=== PATIENT | female | born 1970 | race Two or more races ===

== ENCOUNTER 2017-11-01 14:18 | Observation (INO) | payer BC ==
[2017-11-01] MEDS ORDERED: ONDANSETRON 4 MG/2 ML VIAL IVP STA (16:42)
[2017-11-01] MEDS ORDERED: KETOROLAC 30 MG/ML 1 ML VIAL IVP STA (16:43)
[2017-11-01 17:01] LABS: Basophils % (A) 1 %; Eosinophils # (A) 0.1 k/uL (0-0.7); Eosinophils % (A) 1 %; HCT 40.8 % (34.0-46.0); HGB 13.4 gm/dL (11.4-16.0); Lymphocytes # (A) 1.6 k/uL (1.0-4.8); Lymphocytes % (A) 38 %; MCH 29.5 pg (25.0-35.0); MCHC 32.9 g/dL (31.0-37.0); MCV 89.7 fL (80.0-100.0); Monocytes # (A) 0.3 k/uL (0-1.0); Monocytes % (A) 6 %; Neutrophils # (A) 2.2 k/uL (1.3-7.7); Neutrophils % (A) 52 %; Platelet Count 224 k/uL (150-450); RBC 4.54 m/uL (3.80-5.40); RDW 13.3 % (11.5-15.5); WBC 4.2 k/uL (3.8-10.6)
[2017-11-01 17:09] LABS: Partial Thromboplastin Time 25.1 sec (22.0-30.0); Prothrombin Time 9.8 sec (9.0-12.0)
[2017-11-01 17:10] LABS: ALT 39 U/L (9-52); AST 25 U/L (14-36); Albumin 4.1 g/dL (3.5-5.0); Alkaline Phosphatase 71 U/L (38-126); Amylase <30 U/L (30-110); Anion Gap 10 mmol/L; Blood Urea Nitrogen 6 mg/dL (7-17); Calcium 9.4 mg/dL (8.4-10.2); Carbon Dioxide 26 mmol/L (22-30); Chloride 103 mmol/L (98-107); Glucose 99 mg/dL (74-99); Lipase 64 U/L (23-300); Magnesium 1.8 mg/dL (1.6-2.3); Potassium 4.1 mmol/L (3.5-5.1); Sodium 139 mmol/L (137-145); Total Bilirubin 0.5 mg/dL (0.2-1.3); Total Protein 6.9 g/dL (6.3-8.2)
[2017-11-01 17:22] LABS: Creatine Kinase 23 U/L (30-135)
--- NOTE | 2017-11-01 17:23 | XR ---
EXAMINATION TYPE: XR chest 2V DATE OF EXAM: 11/01/2017 COMPARISON: NONE HISTORY: Chest pain TECHNIQUE: Frontal and lateral views of the chest are obtained. FINDINGS: There is no focal air space opacity, pleural effusion, or pneumothorax seen. The cardiac silhouette size is within normal limits. The osseous structures are intact. Mild degenerative yepez es of the acromioclavicular joints are noted. IMPRESSION: No acute cardiopulmonary process.
[2017-11-01 17:35] LABS: Creatine Kinase MB <0.2 ng/mL (0.0-2.4); Troponin I <0.012 ng/mL (0.000-0.034)
--- NOTE | 2017-11-01 18:17 | ED ---
Recheck HPI - General Chief Complaint: Recheck/Abnormal Lab/Rx Stated Complaint: Palpatations Time Seen by Provider: 11/01/17 16:23 Source: patient, RN notes reviewed, old records reviewed Mode of arrival: ambulatory Limitations: language barrier - History of Present Illness Initial Comments: 47-year-old female presents emergency department today with intermittent nausea vomiting, diarrhea for the past few days. She reports she's also had some left- sided shoulder pain and complains of some chest pain. She states that has been going on for quite some time, feels like there is a Pin stabbing chest. And complains of heart palpitations over the past weekend. Patient states that she has history of diabetes. She reports that she talked her friends and was concerned that this could be some left-sided chest pain related to her heart. She denies any other associated symptoms, cleaning headache, diaphoresis, shortness of breath. She reports that she lives here by herself, does work at a factory. - Related Data Home Medications Medication Instructions Recorded Confirmed metFORMIN HCL [Glucophage] 500 mg PO TID PRN 11/01/17 11/01/17 Previous Rx's Medication Instructions Recorded Ibuprofen [Motrin] 600 mg PO Q8HR PRN #20 tab 11/01/17 Loperamide [Imodium] 2 mg PO TID #6 capsule 11/01/17 Ondansetron Odt [Zofran Odt] 4 mg PO Q8HR PRN #12 tab 11/01/17 Allergies Allergy/AdvReac Type Severity Reaction Status Date / Time No Known Allergies Allergy Verified 11/01/17 16:35 Review of Systems ROS Statement: Those systems with pertinent positive or pertinent negative responses have been documented in the HPI. ROS Other: All systems not noted in ROS Statement are negative. Past Medical History Past Medical History: Diabetes Mellitus History of Any Multi-Drug Resistant Organisms: None Reported Past Psychological History: No Psychological Hx Reported Smoking Status: Never smoker Past Alcohol Use History: None Reported Past Drug Use History: None Reported General Exam - General Exam Comments Initial Comments: This is a 47-year-old female. No acute distress. There is a language barrier. She does not speak fluent Swedish. Limitations: language barrier General appearance: alert, in no apparent distress Head exam: Present: atraumatic, normocephalic, normal inspection Eye exam: Present: normal appearance, PERRL, EOMI. Absent: scleral icterus, conjunctival injection, periorbital swelling ENT exam: Present: normal exam, mucous membranes moist Neck exam: Present: normal inspection. Absent: tenderness, meningismus, lymphadenopathy Respiratory exam: Present: normal lung sounds bilaterally. Absent: respiratory distress, wheezes, rales, rhonchi, stridor Cardiovascular Exam: Present: regular rate, normal rhythm, normal heart sounds. Absent: systolic murmur, diastolic murmur, rubs, gallop, clicks GI/Abdominal exam: Present: soft, normal bowel sounds. Absent: distended, tenderness, guarding, rebound, rigid Back exam: Present: normal inspection Neurological exam: Present: alert, oriented X3, CN II-XII intact Psychiatric exam: Present: normal affect, normal mood Skin exam: Present: warm, dry, intact, normal color. Absent: rash Course Vital Signs 11/01/17 11/01/17 11/01/17 14:37 17:00 18:52 Temperature 98.8 F Pulse Rate 86 77 75 Respiratory 20 18 18 Rate Blood Pressure 125/58 109/64 132/75 O2 Sat by Pulse 100 97 98 Oximetry Medical Decision Making - Medical Decision Making This patient is a 39-year-old female comes in today with left shoulder pain, and severe diarrhea and nausea and vomiting this weekend. She reports that she had episodes of heart palpitations. She reports that they suicidal she is in the emergency department. She states that whenever they occur she has a sharp pain in her chest. Patient is a diabetic. She reports that she has sharp pins and needles in her chest, and complains of chest pressure. Patient does have a language barrier. Initially went to discharge the patient has cardiac workup was negative, she still continues to complain of chest pain. Multiple times have the patient follow-up with primary care provider, however I'm concerned that she is not completely understand this. Patient concerned with this and continue plan chest pain, for patient to be minute for observation for repeat troponins, and cardiac consult. We'll give the patient aspirin, and repeat cardiac enzymes. We'll put the patient on observation for cardiac evaluation. Patient is agreeable to this. - Lab Data Result diagrams: 11/01/17 16:40 11/01/17 16:40 Lab Results 11/01/17 11/01/17 11/01/17 Range/Units 16:40 16:40 16:40 WBC 4.2 (3.8-10.6) k/uL RBC 4.54 (3.80-5.40) m/uL Hgb 13.4 (11.4-16.0) gm/dL Hct 40.8 (34.0-46.0) % MCV 89.7 (80.0-100.0) fL MCH 29.5 (25.0-35.0) pg MCHC 32.9 (31.0-37.0) g/dL RDW 13.3 (11.5-15.5) % Plt Count 224 (150-450) k/uL Neutrophils % 52 % Lymphocytes % 38 % Monocytes % 6 % Eosinophils % 1 % Basophils % 1 % Neutrophils # 2.2 (1.3-7.7) k/uL Lymphocytes # 1.6 (1.0-4.8) k/uL Monocytes # 0.3 (0-1.0) k/uL Eosinophils # 0.1 (0-0.7) k/uL Basophils # 0.0 (0-0.2) k/uL PT (9.0-12.0) sec INR (<1.2) APTT (22.0-30.0) sec Sodium 139 (137-145) mmol/L Potassium 4.1 (3.5-5.1) mmol/L Chloride 103 (98-107) mmol/L Carbon Dioxide 26 (22-30) mmol/L Anion Gap 10 mmol/L BUN 6 L (7-17) mg/dL Creatinine 0.47 L (0.52-1.04) mg/dL Est GFR (MDRD) Af Amer >60 (>60 ml/min/1.73 sqM) Est GFR (MDRD) Non-Af >60 (>60 ml/min/1.73 sqM) Glucose 99 (74-99) mg/dL Calcium 9.4 (8.4-10.2) mg/dL Magnesium 1.8 (1.6-2.3) mg/dL Total Bilirubin 0.5 (0.2-1.3) mg/dL AST 25 (14-36) U/L ALT 39 (9-52) U/L Alkaline Phosphatase 71 (38-126) U/L Total Creatine Kinase 23 L (30-135) U/L CK-MB (CK-2) <0.2 (0.0-2.4) ng/mL CK-MB (CK-2) Rel Index Troponin I <0.012 (0.000-0.034) ng/mL NT-Pro-B Natriuret Pep pg/mL Total Protein 6.9 (6.3-8.2) g/dL Albumin 4.1 (3.5-5.0) g/dL Amylase <30 L (30-110) U/L Lipase 64 (23-300) U/L 11/01/17 11/01/17 Range/Units 16:40 16:40 WBC (3.8-10.6) k/uL RBC (3.80-5.40) m/uL Hgb (11.4-16.0) gm/dL Hct (34.0-46.0) % MCV (80.0-100.0) fL MCH (25.0-35.0) pg MCHC (31.0-37.0) g/dL RDW (11.5-15.5) % Plt Count (150-450) k/uL Neutrophils % % Lymphocytes % % Monocytes % % Eosinophils % % Basophils % % Neutrophils # (1.3-7.7) k/uL Lymphocytes # (1.0-4.8) k/uL Monocytes # (0-1.0) k/uL Eosinophils # (0-0.7) k/uL Basophils # (0-0.2) k/uL PT 9.8 (9.0-12.0) sec INR 1.0 (<1.2) APTT 25.1 (22.0-30.0) sec Sodium (137-145) mmol/L Potassium (3.5-5.1) mmol/L Chloride (98-107) mmol/L Carbon Dioxide (22-30) mmol/L Anion Gap mmol/L BUN (7-17) mg/dL Creatinine (0.52-1.04) mg/dL Est GFR (MDRD) Af Amer (>60 ml/min/1.73 sqM) Est GFR (MDRD) Non-Af (>60 ml/min/1.73 sqM) Glucose (74-99) mg/dL Calcium (8.4-10.2) mg/dL Magnesium (1.6-2.3) mg/dL Total Bilirubin (0.2-1.3) mg/dL AST (14-36) U/L ALT (9-52) U/L Alkaline Phosphatase (38-126) U/L Total Creatine Kinase (30-135) U/L CK-MB (CK-2) (0.0-2.4) ng/mL CK-MB (CK-2) Rel Index Troponin I (0.000-0.034) ng/mL NT-Pro-B Natriuret Pep 32 pg/mL Total Protein (6.3-8.2) g/dL Albumin (3.5-5.0) g/dL Amylase (30-110) U/L Lipase (23-300) U/L 11/01/17 18:25 EKG shows normal sinus rhythm, ventricular rate of 82 bpm. HI interval 150 ms. QRS duration 82 Aliyah's ice. QTQTC 39 03/28/1963 milliseconds. - Radiology Data Radiology results: report reviewed His x-rays negative for any acute process. Disposition Clinical Impression: Chest pain, Diarrhea Disposition: ADMITTED IP TO THIS HOSP Condition: Good Additional Instructions: Patient denies to rest, increase her fluid intake. Return to the emergency department if any alarming signs or symptoms occur. Prescriptions: Ibuprofen [Motrin] 600 mg PO Q8HR PRN #20 tab PRN Reason: Pain Loperamide [Imodium] 2 mg PO TID #6 capsule Ondansetron Odt [Zofran Odt] 4 mg PO Q8HR PRN #12 tab PRN Reason: Nausea Referrals: None,Stated [Primary Care Provider] - 1-2 days Trinidad Ibarra MD [STAFF PHYSICIAN] - 1-2 days Time of Disposition: 18:29
[2017-11-01] MEDS ORDERED: NITROGLYCERIN SL TABS 0.4 MG TAB SUBLINGUAL PRN (19:21)
[2017-11-01] MEDS ORDERED: ASPIRIN 81 MG PO STA (19:21)
[2017-11-01 20:00] LABS: Mean Platelet Volume 8.8; Platelet Count 198 k/uL (150-450)
[2017-11-01] MEDS ORDERED: LOPERAMIDE 2 MG CAP PO PRN (21:30)
[2017-11-01 21:31] LABS: Glucose,Whole Blood 120 mg/dL (75-99)
[2017-11-01 22:46] LABS: Creatine Kinase 21 U/L (30-135)
[2017-11-01 23:00] LABS: Creatine Kinase MB <0.2 ng/mL (0.0-2.4); Troponin I <0.012 ng/mL (0.000-0.034)
[2017-11-01] MEDS: metFORMIN 500 MG TAB PO SCH (23:21)
[2017-11-01] MEDS: IBUPROFEN 600 MG TAB PO SCH (23:21)
[2017-11-02 05:45] LABS: Cholesterol 157 mg/dL (<200); HDL Cholesterol 45 mg/dL (40-60); LDL Cholesterol,Calculated 90 mg/dL (0-99); Triglycerides 112 mg/dL (<150)
[2017-11-02 05:49] LABS: Creatine Kinase <20 U/L (30-135)
[2017-11-02 06:03] LABS: Creatine Kinase MB <0.2 ng/mL (0.0-2.4); Troponin I <0.012 ng/mL (0.000-0.034)
--- NOTE | 2017-11-02 07:44 | HP ---
HISTORY AND PHYSICAL CHIEF COMPLAINT: A 47-year-old female with chest pain, nausea, vomiting, diarrhea for the past few days. She states somebody at work had this. She has some left-sided shoulder pain and some neck pain radiating to her shoulder, but she states it is a pin-stabbing chest pain. 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 She has had heart palpitations over the weekend. She has history of diabetes mellitus. No heart attacks or strokes. She has strong family history of heart disease, though. HOME MEDICATIONS: Include metformin 500 mg t.i.d. ALLERGIES: No known drug allergies. . 14 PINT REVIEW OF SYSTEMS: Negative except for as mentioned in HPI. PAST MEDICAL HISTORY: Diabetes mellitus. No smoking. No alcohol. No illicit drugs. CARDIOVASCULAR: S1, S2. LUNGS: Transmitted upper sounds. GI: Soft, nontender. HEMATOLOGIC: Negative Homans. PSYCH: Fair mood and affect. OPHTHALMOLOGICAL: Pupils equal, round, reactive to light and accommodation. NEUROLOGIC: Alert and oriented x3. SKIN: Warm, dry, intact. Temp 98.8, pulse 70s to 80s, respiration 18 to 20, blood pressure 120 to 130s/60s to 70s., O2 98% to 100% on room air. ASSESSMENT: 1. Rule out myocardial infarction. 2. Atypical chest pain. 3. Check thyroid. 4. Check A1c. 5. Check further medications. 6. Possible discharge home in the next 24 to 48 hours if cleared by Cardiology. Possible stress test will be done tomorrow if cardiac enzymes are ruled out due to strong family history. Chest x-ray is negative for any infiltrate and D-dimer is negative also. Please see further orders. MMODL / IJN: [id number] /
[2017-11-02] MEDS ORDERED: ASPIRIN 325 MG TAB PO SCH (09:00)
[2017-11-02 11:51] LABS: Glucose,Whole Blood 103 mg/dL (75-99)
[2017-11-02] MEDS: metFORMIN 500 MG TAB PO SCH (12:21)
[2017-11-02] MEDS: IBUPROFEN 600 MG TAB PO SCH (12:23)
--- NOTE | 2017-11-02 12:23 | P.CRDCN ---
History of Present Illness Consult date: 11/02/17 History of present illness: Mrs. Francis is a pleasant 47-year-old female with past medical history significant for diabetes mellitus. 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 She began to feel chest discomfort last week Tim while at work described as a heavy sensation in the center of her chest like a rock sitting on her chest. She became acutely nauseous and began vomiting. She continued with nausea/vomiting, body aches, racing heart and fever/chills for the remainder of the weekend. She also developed some pain in the left arm that is described as achy in nature. There is some radiation into the mid back region. 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 She states she has a significant family history of coronary artery disease with her father, brother, uncle and cousin all having premature cardiac disease. She was told by a physician in [place] some years back that she had elevated cholesterol. Lipid panel here is unremarkable. At the time of my exam she continues to complain of mild pain in the left arm and shoulder. This pain is not reproducible and is not worse with a deep inspiration. EKG on arrival reveals sinus mechanism with no acute ST or T-wave abnormalities. Chest xray negative for acute cardiopulmonary process. Laboratory data reviewed, cardiac enzymes negative x3, d-dimer negative, potassium 4.1, magnesium 1.8, creatinine 0.47, tsh 0.975, LDL 90, HDL 45. She takes no cardiac medications. Review of Systems At the time of my exam: CONSTITUTIONAL: Denies fever. Denies chills. EYES: Denies blurred vision. Denies vision changes. Denies eye pain. EARS, NOSE, MOUTH & THROAT: Denies headache. Denies sore throat. Denies ear pain. CARDIOVASCULAR: Denies chest pain. Denies shortness of breath. Denies orthopnea. Denies PND. Denies palpitations. RESPIRATORY: Denies cough. GASTROINTESTINAL: Denies abdominal pain. Denies diarrhea. Denies constipation. Denies nausea. Denies vomiting. MUSCULOSKELETAL: Complains of pain in the left arm, shoulder and neck. INTEGUMENTARY: Denies pruitis. Denies rash. NEUROLOGIC: Denies numbness. Denies tingling. Denies weakness. PSYCHIATRIC: Denies anxiety. Denies depression. ENDOCRINE: Denies fatigue. Denies weight change. Denies polydipsia. Denies polyurina. GENITOURINARY: Denies burning, hematuria or urgency with micturation. HEMATOLOGIC: Denies history of anemia. Denies bleeding. Past Medical History Past Medical History: Diabetes Mellitus History of Any Multi-Drug Resistant Organisms: None Reported Past Surgical History: Section Additional Past Surgical History / Comment(s): Lt knee surgery r/t fracture Past Anesthesia/Blood Transfusion Reactions: No Reported Reaction Past Psychological History: No Psychological Hx Reported Smoking Status: Never smoker Past Alcohol Use History: None Reported Past Drug Use History: None Reported Medications and Allergies Home Medications Medication Instructions Recorded Confirmed Type Ibuprofen [Motrin] 600 mg PO Q8HR PRN #20 tab 11/01/17 Rx Loperamide [Imodium] 2 mg PO TID #6 capsule 11/01/17 Rx Ondansetron Odt [Zofran Odt] 4 mg PO Q8HR PRN #12 tab 11/01/17 Rx metFORMIN HCL [Glucophage] 500 mg PO TID PRN 11/01/17 11/01/17 History Allergies Allergy/AdvReac Type Severity Reaction Status Date / Time No Known Allergies Allergy Verified 11/01/17 16:35 Physical Exam Vitals: Vital Signs Temp Pulse Pulse Resp BP BP Pulse Ox 11/02/17 07:55 97.7 F 70 16 106/51 97 11/02/17 04:00 70 18 11/02/17 00:00 97.9 F 70 18 130/67 100 11/01/17 21:59 97.8 F 76 18 139/78 100 11/01/17 20:09 97.9 F 75 18 113/67 98 11/01/17 19:43 74 16 119/68 98 11/01/17 18:52 75 18 132/75 98 11/01/17 17:00 77 18 109/64 97 11/01/17 14:37 98.8 F 86 20 125/58 100 Intake and Output 11/01/17 11/02/17 11/02/17 22:59 06:59 14:59 Other: Voiding Method Toilet Toilet # Voids 1 Weight 54.431 kg 54.431 kg Blood pressure 106/51 heart rate 70 afebrile GENERAL: This is a 47-year-old female in no apparent distress at the time of my examination. HEENT: Head is atraumatic, normocephalic. Pupils are equal, round. Sclerae anicteric. Conjunctivae are clear. Mucous membranes of the mouth are moist. Neck is supple. There is no jugular venous distention. No carotid bruit is heard. LUNGS: Clear to auscultation no wheezes, rales or rhonchi. No chest wall tenderness is noted on palpation or with deep breathing. HEART: Regular rate and rhythm without murmurs, rubs or gallops. S1 and S2 heard. ABDOMEN: Soft, nontender. Bowel sounds are heard. No organomegaly noted. EXTREMITIES: 2+ peripheral pulses with no evidence of peripheral edema and no calf tenderness noted. NEUROLOGIC: Patient is awake, alert and oriented x3. Results 11/01/17 19:42 11/01/17 16:40 Cardiac Enzymes 11/01/17 11/01/17 11/01/17 Range/Units 16:40 16:40 22:01 AST 25 (14-36) U/L CK-MB (CK-2) <0.2 <0.2 (0.0-2.4) ng/mL Troponin I <0.012 <0.012 (0.000-0.034) ng/mL 11/02/17 Range/Units 05:00 AST (14-36) U/L CK-MB (CK-2) <0.2 (0.0-2.4) ng/mL Troponin I <0.012 (0.000-0.034) ng/mL Coagulation 11/01/17 11/01/17 Range/Units 16:40 19:42 PT 9.8 (9.0-12.0) sec APTT 25.1 25.4 (22.0-30.0) sec Lipids 11/02/17 Range/Units 05:04 Triglycerides 112 (<150) mg/dL Cholesterol 157 (<200) mg/dL HDL Cholesterol 45 (40-60) mg/dL CBC 11/01/17 11/01/17 Range/Units 16:40 19:42 WBC 4.2 (3.8-10.6) k/uL RBC 4.54 (3.80-5.40) m/uL Hgb 13.4 (11.4-16.0) gm/dL Hct 40.8 (34.0-46.0) % Plt Count 224 198 (150-450) k/uL Comprehensive Metabolic Panel 11/01/17 Range/Units 16:40 Sodium 139 (137-145) mmol/L Potassium 4.1 (3.5-5.1) mmol/L Chloride 103 (98-107) mmol/L Carbon Dioxide 26 (22-30) mmol/L BUN 6 L (7-17) mg/dL Creatinine 0.47 L (0.52-1.04) mg/dL Glucose 99 (74-99) mg/dL Calcium 9.4 (8.4-10.2) mg/dL AST 25 (14-36) U/L ALT 39 (9-52) U/L Alkaline Phosphatase 71 (38-126) U/L Total Protein 6.9 (6.3-8.2) g/dL Albumin 4.1 (3.5-5.0) g/dL Current Medications Generic Name Dose Route Start Last Admin Trade Name Freq PRN Reason Stop Dose Admin Aspirin 325 mg 11/02/17 09:00 Aspirin PO DAILY [facility] Ibuprofen 600 mg 11/01/17 22:00 11/01/17 23:21 Motrin PO Not Given TID JOSH Loperamide HCl 2 mg 11/01/17 21:30 Imodium PO QID PRN Diarrhea Metformin HCl 500 mg 11/01/17 21:27 11/01/17 23:21 Glucophage PO Not Given BID-W/MEALS [facility] Nitroglycerin 0.4 mg 11/01/17 19:21 Nitrostat SUBLINGUAL Q5M PRN Chest Pain Intake and Output 11/01/17 11/02/17 11/02/17 22:59 06:59 14:59 Other: Voiding Method Toilet Toilet # Voids 1 Weight 54.431 kg 54.431 kg 11/01/17 19:42 11/01/17 16:40 Assessment and Plan Assessment: ASSESSMENT 1. Precordial chest pain 2. Diabetes mellitus PLAN Obtain 2-D echocardiogram and Doppler study to assess cardiac structure and function. Perform stress echocardiogram to evaluate for stress-induced cardiac ischemia. Telemetry tracings since admission have been unremarkable. TSH is normal. Palpitations related to viral syndrome. She is mildly dehydrated which is in line with her complaints of nausea vomiting and diarrhea. Recommend increase oral intake. From a cardiac perspective if the above testing is negative she is stable. She can follow-up with Dr. Gan as an outpatient as needed. Thank you kindly for this consultation. Nurse Practitioner note has been reviewed, I agree with a documented findings and plan of care. Patient was seen and examined.
--- NOTE | 2017-11-02 12:25 | ECHOF ---
Referral Reason:chest pain MEASUREMENTS -------- HEIGHT: 165.1 cm WEIGHT: 54.4 kg BP: 140/66 IVSd: 0.8 cm (0.6 - 1.1) LVIDd: 3.9 cm (3.9 - 5.3) LVPWd: 1.0 cm (0.6 - 1.1) IVSs: 1.7 cm LVIDs: 2.4 cm LVPWs: 1.6 cm Ao Diam: 2.6 cm (2.0 - 3.7) AV Cusp: 1.6 cm (1.5 - 2.6) LA Diam: 3.1 cm (2.7 - 3.8) MV EXCURSION: 13.666 mm (> 18.000) MV EF SLOPE: 38 mm/s (70 - 150) EPSS: 0.4 cm MV E John: 0.59 m/s MV DecT: 218 ms MV A John: 0.76 m/s MV E/A Ratio: 0.78 RAP: 5.00 mmHg RVSP: 18.24 mmHg FINDINGS -------- Sinus rhythm. This was a technically good study. The left ventricular size is normal. Left ventricular wall thickness is normal. Overall left vent ricular systolic function is normal with, an EF between 55 - 60 %. The right ventricle is normal in size and function. The left atrium is normal in size. The right atrium is normal in size. The aortic valve is trileaflet, and appears structurally normal. No aortic stenosis or regurgitation. There is trace mitral regurgitation. Mild tricuspid regurgitation present. The right ventricular systolic pressure, as measured by Doppl er, is 18.24mmHg. Trace/mild (physiologic) pulmonic regurgitation. The aortic root size is normal. Normal inferior vena cava with normal inspiratory collapse consistent with estimated right atrial pre ssure of 5 mmHg. The pericardium is normal. CONCLUSIONS -------- 1. Sinus rhythm. 2. This was a technically good study. 3. The left ventricular size is normal. 4. Left ventricular wall thickness is normal. 5. Overall left ventricular systolic function is normal with, an EF between 55 - 60 %. 6. The right ventricle is normal in size and function. 7. The left atrium is normal in size. 8. The right atrium is normal in size. 9. The aortic valve is trileaflet, and appears structurally normal. No aortic stenosis or regurgitati on. 10. There is trace mitral regurgitation. 11. Mild tricuspid regurgitation present. 12. The right ventricular systolic pressure, as measured by Doppler, is 18.24mmHg. 13. Trace/mild (physiologic) pulmonic regurgitation. 14. The aortic root size is normal. 15. Normal inferior vena cava with normal inspiratory collapse consistent with estimated right atrial pressure of 5 mmHg. 16. The pericardium is normal. AFFILIATE MARKETING MANAGER: Evelina Arguelles RDCS
--- NOTE | 2017-11-02 12:47 | ECHOS ---
STRESS ECHOCARDIOGRAM DATE OF SERVICE: 11/02/2017 INDICATION: Chest pain. MEDICATIONS: Metformin. BASELINE HEART RATE: 93 BASELINE BLOOD PRESSURE: 122/66 MAXIMUM HEART RATE: 154 MAXIMUM BLOOD PRESSURE: 151/47 85% MPHR: 146 100% MPHR: 172 METS: 9 MAXIMUM STAGE REACHED: III TOTAL EXERCISE TIME: 7:45 CLINICAL INFORMATION: Baseline EKG shows sinus rhythm, normal axis, normal intervals. The patient exercised on Eduardo protocol for a total of 7 minutes and 45 seconds achieving 9 METS, 89% of predicted maximal heart rate without chest pain or diagnostic ST-segment depression. Baseline echo shows normal left ventricular size, wall motion and systolic function. Postexercise there is normal hyperdynamic response of all segments of myocardium noted. CONCLUSIONS: 1. Above-average exercise tolerance. 2. Negative stress test by EKG criteria. 3. Negative stress echo. NICK / NICOLÁSN: [id number] /
[2017-11-02 15:39] VITALS: BP 111/59; PULSE 92; RESP 18; TEMP 97.6
== END 2017-11-02 16:51 | disposition home or self-care (01) ==
LOC: EC 14:18 → 3OBS 19:52
PROVIDERS: ADMIT Family Medicine; ATTEND Family Medicine
DX: R07.2 Precordial pain (principal); M25.512 Pain in left shoulder; R00.2 Palpitations; E86.0 Dehydration; B34.9 Viral infection, unspecified; E11.9 Type 2 diabetes mellitus without complications; R19.7 Diarrhea, unspecified; M54.2 Cervicalgia; R50.9 Fever, unspecified; R11.2 Nausea with vomiting, unspecified; E78.00 Pure hypercholesterolemia, unspecified; Z79.84 Long term (current) use of oral hypoglycemic drugs; Z82.49 Family history of ischemic heart disease and other diseases of the circulatory system
CPT/HCPCS: 96374; 96375; 99285; 36415; 93005; 93017; 93306; 93350; 85379; 83880; 80061; 80053; 84443; 82150; 82550 ×2; 82553 ×2; 83690; 83735; 84484 ×2; 85025; 85049; 85610; 85730; 71046; G0378 ×2; J2405; J1885

== ENCOUNTER 2020-06-24 13:02 | Emergency (ER) | payer BC, OTHER ==
[2020-06-24 13:21] VITALS: RESP 18; TEMP 98.2
[2020-06-24] MEDS ORDERED: SODIUM CHLORIDE 0.9% 500 ML 500 ML IV ONE (13:40)
[2020-06-24 14:23] LABS: Basophils # (A) 0.1 k/uL (0-0.2); Basophils % (A) 1 %; Eosinophils # (A) 0.1 k/uL (0-0.7); Eosinophils % (A) 1 %; HCT 42.8 % (34.0-46.0); HGB 14.3 gm/dL (11.4-16.0); Lymphocytes # (A) 2.4 k/uL (1.0-4.8); Lymphocytes % (A) 39 %; MCHC 33.5 g/dL (31.0-37.0); MCV 86.7 fL (80.0-100.0); Mean Platelet Volume 9.1; Monocytes # (A) 0.3 k/uL (0-1.0); Monocytes % (A) 4 %; Neutrophils # (A) 3.3 k/uL (1.3-7.7); Neutrophils % (A) 53 %; Platelet Count 247 k/uL (150-450); RBC 4.94 m/uL (3.80-5.40); RDW 12.4 % (11.5-15.5); WBC 6.3 k/uL (3.8-10.6)
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
[2020-06-24 14:34] LABS: ALT 31 U/L (4-34); AST 42 U/L (14-36); African American GFR (CKD) >90 (>60 ml/min/1.73 sqM); Albumin 4.9 g/dL (3.5-5.0); Alkaline Phosphatase 102 U/L (38-126); Anion Gap 8 mmol/L; Blood Urea Nitrogen 10 mg/dL (7-17); Calcium 9.8 mg/dL (8.4-10.2); Carbon Dioxide 25 mmol/L (22-30); Chloride 104 mmol/L (98-107); Glucose 139 mg/dL (74-99); Non-African American GFR(CKD) >90 (>60 ml/min/1.73 sqM); Potassium 4.5 mmol/L (3.5-5.1); Sodium 137 mmol/L (137-145); Total Bilirubin 0.4 mg/dL (0.2-1.3); Total Protein 8.2 g/dL (6.3-8.2)
--- NOTE | 2020-06-24 15:04 | XR ---
Left shoulder HISTORY: Trauma and pain 3 views of the left shoulder Bone mineralization, joint spaces and alignment are maintained with exception of the posterior left f ifth rib. Suspect there is some callus formation, minimal step off, correlate for history of fracture healing. There is arthropathy at the acromioclavicular joint. Left lung apex as visualized is normal . IMPRESSION: No fracture or dislocation of the shoulder. Correlate for possible prior left fifth rib f racture
[2020-06-24] MEDS ORDERED: MORPHINE SULFATE 4 MG/ML SYRINGE IV STA (15:11)
--- NOTE | 2020-06-24 15:22 | XR ---
Cervical spine HISTORY: Neck pain 6 views of the cervical spine There is spondylosis most notably at C5-6 with associated loss of disc height. Minimal retrolisthesis grade 1 C5-6. There is multilevel facet arthropathy. Cervical vertebral bodies show preserved height . Bone mineralization is reduced. Prevertebral soft tissues are normal. Oblique images show foraminal encroachment at C5-6 bilaterally. IMPRESSION: Degenerative disc disease and facet arthropathy. No acute fracture or subluxation.
--- NOTE | 2020-06-24 15:36 | CT ---
EXAMINATION TYPE: CT chest angio for PE DATE OF EXAM: 06/24/2020 COMPARISON: None HISTORY: Left upper rib pain, history of fractures. CT DLP: 320.2 mGycm Automated exposure control for dose reduction was used. CONTRAST: CT Chest for pulmonary embolism performed with with IV Contrast, patient injected with 100 mL of Isov ue 370. MIP images generated and utilized on a separate workstation. FINDINGS: LUNGS: The lungs are grossly clear, there is no concerning parenchymal mass or nodule identified. Th ere is no pleural effusion or pneumothorax seen. The tracheobronchial tree is patent. MEDIASTINUM: There is satisfactory enhancement of the pulmonary artery and its branches, there is no CT evidence for pulmonary embolism. There are no greater than 1 cm hilar or mediastinal lymph nodes. Cardiac size normal. No pericardial effusion is seen. OTHER: Too small to characterize hypodense lesion of the liver. Tiny hypodense lesion of the right t hyroid lobe. Degenerative changes of the spine and right shoulder. Numerous bilateral rib fractures, left greater than right. The majority of the rib fractures are nondisplaced, however there is mild di splacement of the fractures involving posterior left rib 5 and right lateral rib 3. IMPRESSION: 1. No evidence of pulmonary embolism. 2. Numerous bilateral rib fractures, left greater than right. The majority of the rib fractures are n ondisplaced, however there is mild displacement of the fractures at posterior left rib 5 and right la teral rib 3. 3. Tiny hypodense lesion of the right thyroid lobe. Recommend nonemergent correlation with dedicated thyroid ultrasound.
[2020-06-24] MEDS ORDERED: ACET/COD 300 MG/30 MG STARTER PACK 6 TAB BTL PO STA (16:04)
[2020-06-24] MEDS ORDERED: AZITHROMYCIN 500 MG TAB PO STA (17:09)
[2020-06-24 17:47] VITALS: BP 114/78; PULSE 72
== END 2020-06-24 17:47 | disposition home or self-care (01) ==
LOC: EC 13:02
DX: S22.43XA Multiple fractures of ribs, bilateral, initial encounter for closed fracture (principal); S43.402A Unspecified sprain of left shoulder joint, initial encounter; E04.1 Nontoxic single thyroid nodule; M50.322 Other cervical disc degeneration at C5-C6 level; M19.012 Primary osteoarthritis, left shoulder; E11.9 Type 2 diabetes mellitus without complications; Y04.0XXA Assault by unarmed brawl or fight, initial encounter
CPT/HCPCS: 99285 ×2; 96374 ×2; 36415; 93005; 80053; 84484; 85025; 72050; 73030; 71275; U0003; J2270; Q9967

== ENCOUNTER → 2020-08-16 | Outpatient (CLI) | payer OTHER ==
--- NOTE | 2020-08-17 11:48 | US ---
EXAMINATION TYPE: US thyroid st tissue head/neck DATE OF EXAM: 08/16/2020 COMPARISON: CTA chest 06/24/2020. CLINICAL HISTORY: E04.1 thyroid nodule. Thyroid nodule GLAND SIZE: Right Lobe: 4.3 x 1.0 x 1.5 cm Overall Parenchyma: homogenous Left Lobe: 4.0 x 1.0 x 1.6 cm Overall Parenchyma: homogeneous Isthmus Thickness: 0.3 cm NODULES RIGHT: # of nodules measured on right: 0 LEFT: # of nodules measured on left: 1 1. 0.6 X 0.3 x 0.5 cm hypoechoic mixed nodule at the mid pole with well-defined margins; with no ec hogenic foci. This nodule is wider than tall and shows no intranodular vascularity. Prior size: no prior ultrasound ISTHMUS: # of nodules measured in the isthmus: 0 Bilateral neck scanned, no evidence of lymphadenopathy. IMPRESSION: Right thyroid 0.6 cm nodule meets TI-RADS 3 criteria. Per the ACR White Paper 2017 recommendation, no additional follow-up is recommended.
== END | disposition home or self-care (01) ==
LOC: RADUSWWP 15:43
PROVIDERS: ATTEND Family Medicine
DX: E04.1 Nontoxic single thyroid nodule (principal)
CPT/HCPCS: 76536

== ENCOUNTER 2020-09-22 09:27 | Emergency (ER) | payer OTHER ==
[2020-09-22 09:35] VITALS: BP 151/73; PULSE 93; RESP 18; TEMP 98.5
--- NOTE | 2020-09-22 10:01 | ED ---
ENT HPI - General Chief complaint: ENT Stated complaint: sore throat Time Seen by Provider: 09/22/20 09:35 Source: patient, RN notes reviewed Mode of arrival: ambulatory Limitations: no limitations - History of Present Illness Initial comments: This is a 50-year-old female who presents with complaints of rhinorrhea some cough sore throat no overt fevers chills or sweats however. She states this is been going on for at least a couple days. She also does states she's been coughing up some material that looks black. She does have an appointment to see Dr. Kingsley Benz in approximately 2 weeks. She is a nonsmoker. She denies any earaches he has also been passing some yellow material from her nose. She has been Covid tested negative in the past she does work in healthcare. No other current complaint modifying factors MD complaint: sore throat, other - Related Data Home Medications Medication Instructions Recorded Confirmed guaiFENesin [Mucinex] 600 mg PO BID 09/22/20 09/22/20 metFORMIN HCL [Glucophage] 850 mg PO BID 09/22/20 09/22/20 Previous Rx's Medication Instructions Recorded Ibuprofen [Motrin] 600 mg PO Q8HR PRN #20 tab 11/01/17 Azithromycin [Zithromax Z-pack (6 250 mg PO DIRECTED 5 Days #6 tab 09/22/20 tabs)] Allergies Allergy/AdvReac Type Severity Reaction Status Date / Time No Known Allergies Allergy Verified 09/22/20 10:46 Review of Systems ROS Statement: Those systems with pertinent positive or pertinent negative responses have been documented in the HPI. ROS Other: All systems not noted in ROS Statement are negative. Past Medical History Past Medical History: Diabetes Mellitus History of Any Multi-Drug Resistant Organisms: None Reported Past Surgical History: Section Additional Past Surgical History / Comment(s): Lt knee surgery r/t fracture Past Anesthesia/Blood Transfusion Reactions: No Reported Reaction Past Psychological History: No Psychological Hx Reported Smoking Status: Never smoker Past Alcohol Use History: None Reported Past Drug Use History: None Reported General Exam - General Exam Comments Initial Comments: Is a well-developed well-nourished awake alert oriented 3 female Limitations: no limitations General appearance: alert, in no apparent distress Head exam: Present: atraumatic, normocephalic, normal inspection Eye exam: Present: normal appearance, PERRL, EOMI. Absent: scleral icterus, conjunctival injection, periorbital swelling ENT exam: Present: mucous membranes moist, other (Boggy nasal mucosa with some clear drainage noted. The oropharynx reveals hyperemia with no exudates.) Neck exam: Present: tenderness, full ROM, lymphadenopathy, other (Tenderness palpation of the right cervical lymph chain.). Absent: meningismus Respiratory exam: Present: normal lung sounds bilaterally. Absent: respiratory distress, wheezes, rales, rhonchi, stridor Cardiovascular Exam: Present: regular rate, normal rhythm, normal heart sounds. Absent: systolic murmur, diastolic murmur, rubs, gallop, clicks GI/Abdominal exam: Absent: distended, tenderness, guarding, rebound, rigid Extremities exam: Present: normal inspection, full ROM, normal capillary refill. Absent: tenderness, pedal edema, joint swelling, calf tenderness Back exam: Present: normal inspection Neurological exam: Present: alert, oriented X3, CN II-XII intact Psychiatric exam: Present: normal affect, normal mood Skin exam: Present: warm, dry, intact, normal color. Absent: rash Course Vital Signs 09/22/20 09:30 Temperature 98.5 F Pulse Rate 93 Respiratory 18 Rate Blood Pressure 151/73 O2 Sat by Pulse 97 Oximetry Medical Decision Making - Medical Decision Making The patient testing thus far is negative. I did discuss findings with her. She has a clinical presentation consistent with tracheobronchitis. She will follow- up with Dr. Benz as planned to place on appropriate medication she requests I check a thyroid level that was done in this facility most recent one from 2018 appears be within normal limits - Lab Data Lab Results 09/22/20 09/22/20 Range/Units 09:58 09:58 Coronavirus (PCR) Not Detected (Not Detectd) Influenza Type A RNA Not Detected (Not Detectd) Influenza Type B (PCR) Not Detected (Not Detectd) Group A Strep Rapid Negative (Negative) - Radiology Data Radiology results: report reviewed (Imaging reviewed no acute findings), image reviewed Disposition Clinical Impression: Acute tracheobronchitis, Upper respiratory infection Disposition: HOME SELF-CARE Condition: Good Instructions (If sedation given, give patient instructions): Acute Bronchitis (ED), Pharyngitis (ED), Upper Respiratory Infection (ED) Additional Instructions: Antibiotic prescription sent to your preferred [facility] pharmacy Prescriptions: Azithromycin [Zithromax Z-pack (6 tabs)] 250 mg PO DIRECTED 5 Days #6 tab Is patient prescribed a controlled substance at d/c from ED?: No Referrals: Birdie Valencia MD [Primary Care Provider] - 1-2 days Kingsley Benz MD [STAFF PHYSICIAN] - 1-2 days
--- NOTE | 2020-09-22 10:27 | XR ---
EXAMINATION TYPE: XR chest 2V DATE OF EXAM: 09/22/2020 COMPARISON: Chest x-ray November 01, 2017 HISTORY: Cough and sore throat for 2 days TECHNIQUE: Frontal and lateral views of the chest are obtained. FINDINGS: There is chronic parenchymal changes without suspicious focal air space opacity, pleural e ffusion, or pneumothorax seen. The cardiac silhouette size remains within normal limits. The osseo us structures are intact. IMPRESSION: Chronic changes without acute pulmonary process. Note significant change from prior.
[2020-09-22 11:05] LABS: SARS-CoV-2 RNA Rapid Abbott Not Detected (Not Detectd)
[2020-09-22] MEDS ORDERED: cefTRIAXone 1,000 MG VIAL (IM USE) IM STA (12:02)
[2020-09-22] MEDS ORDERED: AZITHROMYCIN 500 MG TAB PO STA (12:03)
== END 2020-09-22 12:32 | disposition home or self-care (01) ==
LOC: EC 09:27
DX: J20.9 Acute bronchitis, unspecified (principal); J06.9 Acute upper respiratory infection, unspecified; E11.9 Type 2 diabetes mellitus without complications; Z20.828 Contact with and (suspected) exposure to other viral communicable diseases; Z79.84 Long term (current) use of oral hypoglycemic drugs
CPT/HCPCS: 87081; 87430; 87502; 87635; 71046; 99283; 96372; J0696